=== PATIENT | male | born 1950 | race Caucasian/White ===

== ENCOUNTER 2020-08-12 10:49 | Day surgery (SDC) | payer MEDICARE, MEDICAID ==
[2020-08-12] VITALS (10 sets, daily range): BP systolic 95–117; BP diastolic 50–85; PULSE 60–75; TEMP 98.1
[~2020-08-12] VITALS: Ht 190.5 cm; Wt 133.4 kg
[~2020-08-12 10:49] MED LIST: CEPHALEXIN500 M1 PO; COUMADIN4 MG PO; CRESTOR20 MG PO; DEMADEX 20MG20 M1 PO; ESKALITH300 MG PO; FISH OIL 1000MG1 CAP PO; FOLIC ACID 40400 MCG PO; IRON TABLETS325 MG PO; LASIX80 MG PO; LITHIUM 30300 MG/CAP PO; SLO-NIACIN750 MG PO; TOPROL XL 50MG50 MG PO; TYLENOL 8 HR PO; VITAMIN C BUFF500 MG PO; VITAMIN C500 MG PO; VITAMIN D1000 IU PO; ZESTRIL2.5 MG PO; ZOCOR40 MG PO
[2020-08-12 11:46] LABS: HEMOGLOBIN 13.9 g/dl (13.5-18.0); MEAN CELL VOLUME 97 fl (80.0-100.0); MEAN CORPUSCULAR HEMOGLOBIN 30 pg (27.0-31.0); MEAN CORPUSCULAR HGB CONC 31 g/dl (33.0-37.0); MEAN PLATELET VOLUME 10.5 fl (7.4-10.4); PLATELET COUNT 212 K/mm3 (130-400); RED BLOOD COUNT 4.66 M/mm3 (4.20-5.60); REDCELL DISTRIBUTION WIDTH-CV 16.5 % (11.5-14.5)
[2020-08-12 11:47] LABS: CALCIUM 9.3 mg/dL (8.4-10.2); CREATININE, serum 1.47 (0.66-1.25)
[2020-08-12 11:48] LABS: INR 1.1 (0.8-3.0); PROTHROMBIN TIME 12.4 SECONDS (9.7-12.8)
[2020-08-12] MEDS ORDERED: CYANOCOBAL1000 MCG/1 IM (12:10)
[2020-08-12] MEDS ORDERED: LIPITOR 40MG TA40 MG PO (12:10)
[2020-08-12] MEDS ORDERED: ALLEGRA 180MG180 MG PO (12:11)
[2020-08-12] MEDS ORDERED: FLOMAX 0.40.4 MG/CAP PO (12:11)
[2020-08-12] MEDS ORDERED: PEPCID AC20 MG PO (12:11)
[2020-08-12] MEDS ORDERED: LOPRESSOR 225 MG/TAB PO (12:12)
[2020-08-12] MEDS ORDERED: LYRICA 25MG CAP25 MG PO (12:12)
[2020-08-12] MEDS ORDERED: MELATONIN5 M1 SL (12:12)
[2020-08-12] MEDS ORDERED: TYLENOL 325MG325 MG PO (12:13)
[2020-08-12] MEDS ORDERED: PACERONE200 MG PO (12:13)
[2020-08-12] MEDS ORDERED: ELIQUIS 5MG PO (12:14)
[2020-08-12] MEDS ORDERED: DEPAKOTE ER 25250 MG PO (12:14)
[2020-08-12] MEDS ORDERED: LASIX 20MG TABL20 MG PO (12:15)
[2020-08-12] MEDS ORDERED: SEROQUEL 2525 MG/TAB PO (12:16)
[2020-08-12] MEDS ORDERED: NORCO 325 MG-101 TAB PO (12:17)
[2020-08-12] MEDS ORDERED: MIRALAX PA17 GM/Dose PO (12:17)
[2020-08-12] MEDS ORDERED: GERI-TUSSI100 MG/5 M PO (12:17)
[2020-08-12] MEDS ORDERED: CALMOSEPTINE OI71 GM TOP (12:18)
[2020-08-12] MEDS ORDERED: NYSTATIN100000 U/1 TOP (12:19)
--- NOTE | 2020-08-12 13:29 | NUR ---
SEE MERGE FOR ALL MEDICATION TIMES, INTRA AND POST SEDATION ASSESSMENT
[2020-08-12] MEDS ORDERED: CEPHALEXIN500 M1 PO (13:48)
--- NOTE | 2020-08-12 16:30 | NUR ---
Pt assisted up from bed with [id number] lift. IV DC'd with catheter intact and bleeding controlled at site. He expresses understanding of discharge instructions. Written rx for keflex sent with pt's packet and copy left in chart. Pt has tolerated PO without issue prior to discharge. Pt assisted out by wheelchair to [facility] transportation.
--- NOTE | 2020-08-12 17:12 | NUR ---
Nurse report called to Etta at [facility], [place]. She is aware of keflex rx, order to hold eliquis x48 hrs, and follow up instructions.
== END 2020-08-12 16:30 ==
LOC: COL.CAR 10:49
PROVIDERS: Internal Medicine Cardiovascular Disease
DX: Z45.02 Encounter for adjustment and management of automatic implantable cardiac defibrillator (principal); I48.0 Paroxysmal atrial fibrillation; I42.0 Dilated cardiomyopathy; Z86.718 Personal history of other venous thrombosis and embolism; I10 Essential (primary) hypertension; Z88.8 Allergy status to other drugs, medicaments and biological substances
CPT/HCPCS: J0690; J2250; J3010; J7030

== ENCOUNTER 2020-11-26 09:31 | Day surgery (SDC) | payer MEDICARE, MEDICAID ==
[~2020-11-26] VITALS: Ht 190.5 cm; Wt 120.8 kg
[2020-11-26] VITALS (13 sets, daily range): BP systolic 106–137; BP diastolic 79–95; PULSE 73–80; TEMP 98.9
[~2020-11-26 09:31] MED LIST changes: +ALLEGRA 180MG180 MG PO; +CALMOSEPTINE OI71 GM TOP; +CYANOCOBAL1000 MCG/1 IM; +DEPAKOTE ER 25250 MG PO; +ELIQUIS 5MG PO; +FLOMAX 0.40.4 MG/CAP PO; +GERI-TUSSI100 MG/5 M PO; +LASIX 20MG TABL20 MG PO; +LIPITOR 40MG TA40 MG PO; +LOPRESSOR 225 MG/TAB PO; +LYRICA 25MG CAP25 MG PO; +MELATONIN5 M1 SL; +MIRALAX PA17 GM/Dose PO; +NORCO 325 MG-101 TAB PO; +NYSTATIN100000 U/1 TOP; +PACERONE200 MG PO; +PEPCID AC20 MG PO; +SEROQUEL 2525 MG/TAB PO; +TYLENOL 325MG325 MG PO
[2020-11-26 10:40] LABS: HEMATOCRIT 43.6 % (42.0-52.0); HEMOGLOBIN 13.3 g/dl (13.5-18.0); MEAN CELL VOLUME 96 fl (80.0-100.0); MEAN CORPUSCULAR HEMOGLOBIN 29 pg (27.0-31.0); MEAN CORPUSCULAR HGB CONC 31 g/dl (33.0-37.0); MEAN PLATELET VOLUME 9.7 fl (7.4-10.4); PLATELET COUNT 282 K/mm3 (130-400); RED BLOOD COUNT 4.55 M/mm3 (4.20-5.60); REDCELL DISTRIBUTION WIDTH-CV 17.6 % (11.5-14.5)
[2020-11-26 10:45] LABS: INR 1.1 (0.8-3.0)
[2020-11-26 10:47] LABS: PARTIAL THROMBOPLASTIN TIME 30.4 SECONDS (26.0-37.0)
[2020-11-26 10:51] LABS: CREATININE, serum 1.04 (0.66-1.25); POTASSIUM 4.3 mmol/L (3.4-5.0)
[2020-11-26] MEDS ORDERED: DUO-KAPS1 CAP PO (10:51)
[2020-11-26] MEDS ORDERED: ENSURE 237 ML237 ML PO (10:54)
[2020-11-26] MEDS ORDERED: TYLENOL 325MG325 MG PO (10:55)
[2020-11-26] MEDS ORDERED: OXYGEN IH (10:55)
[2020-11-26] MEDS ORDERED: [UNRECOGNIZED DRUG - OTHER] TP (11:03)
[2020-11-26] MEDS ORDERED: SALINE 45 ML45 ML NS (11:05)
--- NOTE | 2020-11-26 18:02 | NUR ---
Discharge reviewed with Dr Long via phone.Discharge instructions given to pt.Pt verbalizes understanding.INT removed,catheter tip intact.SNF staff here to pick pt up.Pt assisted in chair via 3 nurses assist and gaitbelt.
--- NOTE | 2020-11-26 18:03 | NUR ---
Pt escorted out via wheelchair by this nurse.
== END 2020-11-26 18:46 | disposition home or self-care (01) ==
LOC: COL.CAR 09:31
PROVIDERS: Internal Medicine Cardiovascular Disease
DX: I48.0 Paroxysmal atrial fibrillation (principal); I42.0 Dilated cardiomyopathy; I44.7 Left bundle-branch block, unspecified; I50.22 Chronic systolic (congestive) heart failure; I15.0 Renovascular hypertension; E11.41 Type 2 diabetes mellitus with diabetic mononeuropathy; G47.33 Obstructive sleep apnea (adult) (pediatric); G47.36 Sleep related hypoventilation in conditions classified elsewhere; F51.9 Sleep disorder not due to a substance or known physiological condition, unspecified; E66.01 Morbid (severe) obesity due to excess calories; E78.5 Hyperlipidemia, unspecified; F31.9 Bipolar disorder, unspecified; Z68.36 Body mass index [BMI] 36.0-36.9, adult; Z99.3 Dependence on wheelchair; Z87.891 Personal history of nicotine dependence; Z79.899 Other long term (current) drug therapy; Z79.01 Long term (current) use of anticoagulants; Z86.718 Personal history of other venous thrombosis and embolism; Z95.810 Presence of automatic (implantable) cardiac defibrillator; Z86.16 Personal history of COVID-19
CPT/HCPCS: C1769; C1887; J1644; J2250; J3010

== ENCOUNTER 2021-02-25 05:07 | Observation (INO) | payer MEDICARE, MEDICAID ==
[~2021-02-25 05:07] MED LIST changes: +DUO-KAPS1 CAP PO; +ENSURE 237 ML237 ML PO; +OXYGEN IH; +SALINE 45 ML45 ML NS; +[UNRECOGNIZED DRUG - OTHER] TP
[2021-02-25 09:04] VITALS: BP 91/67; PULSE 94; TEMP 99
[2021-02-25 09:46] LABS: HEMATOCRIT 41.1 % (42.0-52.0); HEMOGLOBIN 12.2 g/dl (13.5-18.0); MEAN CELL VOLUME 95 fl (80.0-100.0); MEAN CORPUSCULAR HEMOGLOBIN 28 pg (27.0-31.0); MEAN CORPUSCULAR HGB CONC 30 g/dl (33.0-37.0); MEAN PLATELET VOLUME 9.8 fl (7.4-10.4); PLATELET COUNT 346 K/mm3 (130-400); RED BLOOD COUNT 4.32 M/mm3 (4.20-5.60); REDCELL DISTRIBUTION WIDTH-CV 16.9 % (11.5-14.5)
[2021-02-25 09:52] LABS: ALBUMIN 3.8 gm/dL (3.5-5.0); BILIRUBIN,TOTAL 0.3 mg/dL (0.0-1.0); CALCIUM 10.9 mg/dL (8.4-10.2); CREATININE, serum 1.14 (0.66-1.25); POTASSIUM 4.4 mmol/L (3.4-5.0); TOTAL PROTEIN 7.6 gm/dL (6.4-8.2)
[2021-02-25 09:55] LABS: INR 1.6 (0.8-3.0); PROTHROMBIN TIME 17.7 SECONDS (9.7-12.8)
[2021-02-25 10:22] LABS: BAND 2 % (0-10); BASOPHIL 1 % (0-2); EOSINOPHIL 1 % (0-4); LYMPHOCYTE 11 % (20.0-51.0); NEUTROPHILS 82 % (42.0-75.2); OVALOCYTES 1+
[2021-02-25 10:23] LABS: ANISOCYTOSIS 1+; PLATELET ESTIMATE NORMAL (NORMAL); POIKILOCYTOSIS 1+
[2021-02-25 10:24] LABS: HYPOCHROMIA 2+
[2021-02-25 11:41] VITALS: BP 107/77; PULSE 85; TEMP 98.8
[2021-02-25 12:46] VITALS: BP 107/77; PULSE 85; TEMP 98.8
[2021-02-25] MEDS ORDERED: ROCEPHIN 2GM VIAL21 IM (14:20)
[2021-02-25] MEDS ORDERED: ROCEPHIN VIA1 G/VIAL IJ (14:21)
[2021-02-25] MEDS ORDERED: JUVEN1 PDR PO (14:31)
[2021-02-25] MEDS ORDERED: LITHIUM 30300 MG/CAP PO (14:33)
[2021-02-25] MEDS ORDERED: PERIDEX (CHLOR480 ML MM (14:35)
[2021-02-25 15:16] LABS: MUCOUS Present /lpf; PH 7 (5-8); SQUAMOUS EPITHELIAL None Seen /hpf; URINE APPEARANCE Hazy; URINE BACTERIA Rare /hpf; URINE BILIRUBIN Negative (NEGATIVE); URINE BLOOD Negative (NEGATIVE); URINE COLOR Yellow; URINE GLUCOSE Negative (NEGATIVE); URINE KETONE Negative (NEGATIVE); URINE LEUKOCYTE ESTERASE 3+ (NEGATIVE); URINE NITRATE Positive (NEGATIVE); URINE PROTEIN(semi-quant) Negative (NEGATIVE); URINE UROBILINOGEN Negative (NEGATIVE)
[2021-02-25 16:01] LABS: COLLECTION METHOD CLEAN CATCH
[2021-02-25 16:22] VITALS: BP 107/77; PULSE 85; TEMP 98.8
--- NOTE | 2021-02-25 16:36 | NUR ---
Maria Elena, RN with Dr. Long, notified [facility] that they will not be able to initiate sotalol on the patient now, due to his QTC interval being too long. Dr. Long would like to dc the patient today back to [place]. [facility] notified Monet at [place]. Monet secured a transport time at 1630. [facility] notified Maria Elena. The patient is to discharge today, 02/25, back to [place] for long-term care. Transportation was scheduled at 1630, via [place]. [facility] notified the patient, his RN, and the patient's brother (Bernard) of the time via phone. They were all agreeable to the time. No additional needs at this time.
--- NOTE | 2021-02-25 19:03 | NUR ---
Patient admitted from [place] for Sotolol initiation. Upon initial assessment normal S1 and S2 sounds present, heart rate irregular, radial and pedal pulses +1 bilaterally, lung sounds diminished in all roman, patient requiring 2L of O2 via nasal cannula. Patient A&O. Generalized bruising noted. Patient requires ksenia lift for transfers. TIANA Arredondo notified of patient's arrival. EKG completed. ENh=[id number]. TIANA Arredondo notified and sotolol held. Decision made to not initiate sotolol. Patient deemed fit for discharge. Patient escorted out of building by [facility] Staff. Patient transported home by [place] staff.
== END 2021-02-25 16:30 | disposition home or self-care (01) ==
LOC: MEDICAL 05:07 → EDSTATUS 10:04 → MEDICAL 16:30
PROVIDERS: ADMIT Internal Medicine Cardiovascular Disease
DX: I48.0 Paroxysmal atrial fibrillation (principal); I44.7 Left bundle-branch block, unspecified; N39.0 Urinary tract infection, site not specified; I42.9 Cardiomyopathy, unspecified; I10 Essential (primary) hypertension; G47.33 Obstructive sleep apnea (adult) (pediatric); F31.9 Bipolar disorder, unspecified; Z79.891 Long term (current) use of opiate analgesic; Z86.718 Personal history of other venous thrombosis and embolism; Z79.899 Other long term (current) drug therapy; Z79.01 Long term (current) use of anticoagulants